=== PATIENT | female | born 1990 | race Caucasian/White ===

== ENCOUNTER 2019-09-08 14:46 | Emergency (ER) | payer OTHER ==
[2019-09-08] MEDS ORDERED: Famotidine IV* 10 MG/ML 2 ML (20 mg) IV SLOW PU ONE (14:51)
[2019-09-08] MEDS ORDERED: Dexamethasone IV* 4 MG/ML 1 ML (4 MG) IV SLOW PU ONE (14:51)
[2019-09-08] MEDS ORDERED: NS 0.9% 1000 ML** 1,000 ML IV ONE (14:51)
--- NOTE | 2019-09-08 14:52 | ED ---
Allergic Reaction/Systemic - HPI Summary HPI Summary: Patient is a 29 y/o F presenting to the ED via EMS for a chief complaint of allergic reaction that occurred one hour [employer]ACILITY [employer]NER on 09/08/19. Patient states she was eating Hebrew food with salad when she noticed her throat tightening and hives on her chest 3 minutes after eating the food. She has a known allergy to nuts and suspected she may have accidentally eaten nuts. She went to [facility] to be assessed where she was given 50 mg Benadryl IM and 2 - 0.3 mg EpiPen IM administered at 13:40 with some relief of her symptoms. She currently denies shortness of breath or tongue swelling. Her throat tightening has resolved, but she now admits RLQ abdominal pain. Any significant PMHx including diabetes mellitus or PSHx is denied. FMHx is significant for diabetes mellitus and cardiac disease. - History of Current Complaint Hx Obtained From: Patient, EMS Onset/Duration: Sudden Onset, Still Present Timing: Constant Severity Initially: Moderate Severity Currently: Moderate Pain Scale Used: 0-10 Numeric Character: Hives Aggravating Factor(s): Nothing Alleviating Factor(s): OTC Meds - Benadryl, Epinephrine Associated Signs And Symptoms: Positive: Nausea, Rash - Hives on the chest. Negative: Difficulty Breathing, Throat Tightening - Allergies/Home Medications Allergies/Adverse Reactions: Allergies Allergy/AdvReac Type Severity Reaction Status Date / Time peanut Allergy Hives/Diff. Verified 09/08/19 15:05 Breathing/I tching Home Medications: Home Medications BuPROPion XL* [Bupropion XL*] 300 mg PO DAILY 09/08/19 [History Confirmed ] PMH/Surg Hx/FS Hx/Imm Hx Previously Healthy: Yes Endocrine/Hematology History: Denies: Hx Diabetes Cardiovascular History: Denies: Hx Hypercholesterolemia, Hx Hypertension Sensory History: Denies: Hx Legally Blind, Hx Deafness Opthamlomology History: Denies: Hx Legally Blind EENT History: Denies: Hx Deafness - Surgical History Surgical History: None Surgery Procedure, Year, and Place: None Infectious Disease History: No - Family History Known Family History: Negative: Hypertension, Diabetes - Social History Alcohol Use: None Hx Substance Use: No Substance Use Type: Reports: None Hx Tobacco Use: No Smoking Status (MU): Never Smoked Tobacco Review of Systems Positive: Other - Positive throat tightening, resolved; negative tongue swelling Negative: Shortness Of Breath Positive: Abdominal Pain - RLQ Positive: Other - Positive hives on the chest All Other Systems Reviewed And Are Negative: Yes Physical Exam - Summary Physical Exam Summary: VITAL SIGNS: Reviewed. GENERAL: Patient is a well-developed and nourished FEMALE who is lying comfortable in the stretcher. Patient is not in any acute respiratory distress. HEAD AND FACE: No signs of trauma. No ecchymosis, hematomas or skull depressions. No sinus tenderness. EYES: PERRLA, EOMI x 2, No injected conjunctiva, no nystagmus. EARS: Hearing grossly intact. Ear canals and tympanic membranes are within normal limits. MOUTH: Oropharynx within normal limits. No swelling of the tongue or lips. Patient states she does not feel her throat tightening. NECK: Supple, trachea is midline, no adenopathy, no JVD, no carotid bruit, no c- spine tenderness, neck with full ROM. CHEST: Symmetric, no tenderness at palpation. LUNGS: Clear to auscultation bilaterally. No wheezing or crackles. CVS: Regular rate and rhythm, S1 and S2 present, no murmurs or gallops appreciated. ABDOMEN: Soft, non-tender. No signs of distention. No rebound, no guarding, and no masses palpated. Bowel sounds are normal. EXTREMITIES: FROM in all major joints, no edema, no cyanosis or clubbing. NEURO: Alert and oriented x 3. No acute neurological deficits. Speech is normal and follows commands. SKIN: Dry and warm. Triage Information Reviewed: Yes Vital Signs Reviewed: Yes Procedures - Sedation Patient Received Moderate/Deep Sedation with Procedure: No Diagnostics - Laboratory Lab Statement: Any lab studies that have been ordered have been reviewed, and results considered in the medical decision making process. - EKG 14:54 Cardiac Rate: NL - 86 BPM EKG Rhythm: Sinus Rhythm ST Segment: Normal Ectopy: None Summary of EKG Findings: EKG at 14:54 shows 86 BPM with normal sinus rhythm, no ST elevations, normal axis, no STEMI. Reviewed and interpreted by Dr. Ibarra. Re-Evaluation - Re-Evaluation First Eval Re-Evaluation Time: 16:03 Change: Improved Comment: At 16:03, patient is feeling better. Allergic Reaction Course/Dx - Course Assessment/Plan: Patient is a 29 y/o F presenting to the ED via EMS for a chief complaint of allergic reaction that occurred one hour [employer]ACILITY [employer]NER on 09/08/19. Patient states she was eating Hebrew food with salad when she noticed her throat tightening and hives on her chest 3 minutes after eating the food. She has a known allergy to nuts and suspected she may have accidentally eaten nuts. She went to [facility] to be assessed where she was given 50 mg Benadryl IM and 2 - 0.3 mg EpiPen IM with some relief of her symptoms. She currently denies shortness of breath or tongue swelling. Her throat tightening has resolved, but she now admits RLQ abdominal pain. Any significant PMHx including diabetes mellitus or PSHx is denied. FMHx is significant for diabetes mellitus and cardiac disease. Patient received 2 doses of epinephrine and some Benadryl. In the ED course the patient was given Decadron and Pepcid. The patient is asymptomatic at this time. Patient was observed for approximately 4 hours after she was given epinephrine. Her symptoms did not return. Therefore the patient will be discharged home to follow-up with her PCP. I discussed all the findings and test results with the patient. Patient was instructed to return to the emergency room immediately if any of the symptoms return or worsen. Plan of care was discussed with the patient who understands and agrees. All questions were answered at the patient's satisfaction. There were no further complaints or concerns. Lung exam before discharge: CTA B/L. Good air exchange. No wheezing or crackles heard. CVS: S1 and S2 present. No murmurs appreciated. Patient is alert and oriented x 3. Patient is hemodynamically stable. Patient will be discharged home to follow up with her PCP in the next 2-3 days. Patient has epipens at home. - Diagnoses Provider Diagnoses: Allergic reaction Discharge ED - Sign-Out/Discharge Documenting (check all that apply): Patient Departure - Discharge - Discharge Plan Condition: Stable Disposition: HOME Prescriptions: diPHENhydraMINE PO* [Benadryl PO 25 MG TAB*] 25 mg PO TID PRN #30 tab PRN Reason: Allergy Symptoms Famotidine TAB* [Pepcid 20 MG TAB*] 20 mg PO DAILY #10 tab predniSONE TAB* [Deltasone 20 MG TAB*] 40 mg PO DAILY #8 tab Patient Education Materials: General Allergic Reaction (ED) Referrals: [facility] [Outside] [facility] - Brian PAULSON [Primary Care Provider] - Additional Instructions: FOLLOW UP WITH YOUR PRIMARY CARE PROVIDER WITHIN 2-3 DAYS. RETURN TO THE ED FOR ANY WORSENING OR NEW SYMPTOMS. - Billing Disposition and Condition Condition: STABLE Disposition: Home - Attestation Statements Document Initiated by Scribe: Yes Documenting Scribe: Kay Schroeder Provider For Whom Rosalbaibsuly is Documenting (Include Credential): Fred Ibarra MD Scribe Attestation: Kay Cannon, scribed for Fred Ibarra MD on 09/08/19 at 2132. Scribe Documentation Reviewed: Yes Provider Attestation: The documentation as recorded by the Kay hassan accurately reflects the service I personally performed and the decisions made by Fred pérez MD Status of Scribe Document: Viewed
[2019-09-08 17:42] VITALS: BP 129/84
== END 2019-09-08 17:42 | disposition home or self-care (01) ==
LOC: ED 14:46
DX: T78.1XXA Other adverse food reactions, not elsewhere classified, initial encounter (principal); R10.31 Right lower quadrant pain; Z91.018 Allergy to other foods; X58.XXXA Exposure to other specified factors, initial encounter
CPT/HCPCS: 93005; 96361; 96374; 96375; 99283; J1100